=== PATIENT | female | born 1965 | race Native Hawaiian/Other Pacific Islander ===

== ENCOUNTER 2017-12-08 11:14 | Outpatient (CLI) | payer OTHER | END 2017-12-08 19:52 | disposition home or self-care (01) | LOC: LAB 11:14 | DX: E05.80 Other thyrotoxicosis without thyrotoxic crisis or storm (principal) | CPT/HCPCS: 36415; 82310 ==

== ENCOUNTER 2018-11-27 09:05 | Outpatient (CLI) | payer OTHER ==
[2018-11-27 10:00] LABS: PLATELET COUNT 255 K/uL (152-353)
[2018-11-27 10:19] LABS: POTASSIUM 3.8 mmol/L (3.6-5.2)
== END 2018-11-27 22:45 | disposition home or self-care (01) ==
LOC: LABW 09:05
PROVIDERS: Family Medicine
DX: R53.83 Other fatigue (principal); N28.9 Disorder of kidney and ureter, unspecified; E05.90 Thyrotoxicosis, unspecified without thyrotoxic crisis or storm
CPT/HCPCS: 36415; 80053; 80061; 82306; 82607; 82747; 84443; 85027

== ENCOUNTER 2018-12-05 14:47 | Outpatient (CLI) | payer OTHER | END 2018-12-05 22:20 | disposition home or self-care (01) | LOC: LAB 14:47 | DX: E05.90 Thyrotoxicosis, unspecified without thyrotoxic crisis or storm (principal) | CPT/HCPCS: 84436; 84439; 84479; 84481 ==

== ENCOUNTER 2018-12-22 08:37 | Outpatient (CLI) | payer OTHER | END 2018-12-22 23:41 | disposition home or self-care (01) | LOC: CT 08:37 | DX: R10.9 Unspecified abdominal pain (principal); Z12.39 Encounter for other screening for malignant neoplasm of breast ==

== ENCOUNTER 2019-06-22 11:22 | Outpatient (CLI) | payer OTHER ==
[2019-06-22 11:45] LABS: PLATELET COUNT 266 K/uL (152-353)
[2019-06-22 12:18] LABS: POTASSIUM 3.8 mmol/L (3.6-5.2)
== END 2019-06-22 21:19 | disposition home or self-care (01) ==
LOC: LAB 11:22
PROVIDERS: Nurse Practitioner Family
DX: Z00.00 Encounter for general adult medical examination without abnormal findings (principal); E05.90 Thyrotoxicosis, unspecified without thyrotoxic crisis or storm; E55.9 Vitamin D deficiency, unspecified; E78.5 Hyperlipidemia, unspecified; E03.9 Hypothyroidism, unspecified; R53.83 Other fatigue; E16.2 Hypoglycemia, unspecified; R53.81 Other malaise; Z79.899 Other long term (current) drug therapy
CPT/HCPCS: 80053; 80061; 82306; 83036; 84439; 84443; 84479; 85027

== ENCOUNTER 2019-12-18 16:19 | Outpatient (CLI) | payer OTHER | END 2019-12-18 23:35 | disposition home or self-care (01) | LOC: LAB 16:19 | DX: E03.9 Hypothyroidism, unspecified (principal) | CPT/HCPCS: 84439; 84443; 84479; 84481 ==

== ENCOUNTER 2020-01-02 08:52 | Outpatient (CLI) | payer OTHER | END 2020-01-02 21:25 | disposition home or self-care (01) | LOC: MAMMO 08:52 | DX: Z12.31 Encounter for screening mammogram for malignant neoplasm of breast (principal) ==

== ENCOUNTER 2020-01-10 10:31 | Outpatient (CLI) | payer OTHER | END 2020-01-10 21:57 | disposition home or self-care (01) | LOC: RAD 10:31 | DX: M25.561 Pain in right knee (principal) ==

== ENCOUNTER 2020-04-02 10:02 | Outpatient (CLI) | payer OTHER | END 2020-04-02 20:43 | disposition home or self-care (01) | LOC: LAB 10:02 | PROVIDERS: ATTEND Nurse Practitioner | DX: E03.8 Other specified hypothyroidism (principal); E78.2 Mixed hyperlipidemia | CPT/HCPCS: 36415; 84439 ==

== ENCOUNTER 2020-07-01 07:33 | Outpatient (CLI) | payer OTHER | END 2020-07-01 21:01 | disposition home or self-care (01) | LOC: LABW 07:33 | PROVIDERS: ATTEND Internal Medicine | DX: E03.9 Hypothyroidism, unspecified (principal) | CPT/HCPCS: 36415; 82330; 84439; 84443; 84479 ==

== ENCOUNTER 2020-07-21 12:13 | Outpatient (CLI) | payer OTHER ==
[2020-07-21 12:43] LABS: PLATELET COUNT 262 K/uL (152-353)
[2020-07-21 13:17] LABS: POTASSIUM 3.9 mmol/L (3.6-5.2)
== END 2020-07-21 19:23 | disposition home or self-care (01) ==
LOC: LABW 12:13
PROVIDERS: ATTEND Internal Medicine
DX: R29.898 Other symptoms and signs involving the musculoskeletal system (principal); E03.9 Hypothyroidism, unspecified
CPT/HCPCS: 36415; 80053; 82550; 83516; 83735; 84439; 84443; 85027; 85652; 86038; 86140; 86225; 86235

== ENCOUNTER 2020-07-25 12:35 | Outpatient (CLI) | payer OTHER | END 2020-07-25 21:40 | disposition home or self-care (01) | LOC: LABW 12:35 → MRI 13:00 → LABW 21:40 | PROVIDERS: ATTEND Specialist | DX: R20.2 Paresthesia of skin (principal); R29.898 Other symptoms and signs involving the musculoskeletal system | CPT/HCPCS: 36415; 82607; A9576 ==

== ENCOUNTER 2020-07-29 14:57 | Outpatient (CLI) | payer OTHER | END 2020-07-29 20:50 | disposition home or self-care (01) | LOC: MRI 14:57 | PROVIDERS: ATTEND Specialist | DX: R29.898 Other symptoms and signs involving the musculoskeletal system (principal) | CPT/HCPCS: A9576 ==

== ENCOUNTER 2020-10-01 08:00 | Outpatient (CLI) | payer OTHER ==
[2020-10-01 08:17] LABS: PLATELET COUNT 231 K/uL (152-353)
[2020-10-01 08:36] LABS: POTASSIUM 3.8 mmol/L (3.6-5.2)
== END 2020-10-01 21:25 | disposition home or self-care (01) ==
LOC: LABW 08:00
PROVIDERS: ATTEND Physician Assistant
DX: E03.8 Other specified hypothyroidism (principal); E78.2 Mixed hyperlipidemia; K21.9 Gastro-esophageal reflux disease without esophagitis; G62.9 Polyneuropathy, unspecified
CPT/HCPCS: 36415; 80053; 80061; 82306; 82607; 83036; 84439; 84443; 84481; 85027

== ENCOUNTER 2020-12-04 08:27 | Outpatient (CLI) | payer OTHER ==
[2020-12-04 08:48] LABS: PLATELET COUNT 272 K/uL (152-353)
[2020-12-04 09:11] LABS: POTASSIUM 3.8 mmol/L (3.6-5.2)
[2020-12-04 09:29] LABS: PARTIAL THROMBOPLASTIN TIME 30.2 SECONDS (24.5-33.6)
== END 2020-12-04 21:00 | disposition home or self-care (01) ==
LOC: LABW 08:27
PROVIDERS: ATTEND Neurological Surgery
DX: Z01.812 Encounter for preprocedural laboratory examination (principal); R00.0 Tachycardia, unspecified
CPT/HCPCS: 36415; 80053; 85002; 85027; 85610; 85730; 93005

== ENCOUNTER 2021-06-01 13:44 | Outpatient (CLI) | payer OTHER | END 2021-06-01 20:28 | disposition home or self-care (01) | LOC: RAD 13:44 | PROVIDERS: ATTEND Internal Medicine | DX: U07.1 COVID-19 (principal); R05.9 Cough, unspecified ==

== ENCOUNTER 2021-07-14 08:31 | Outpatient (CLI) | payer OTHER | END 2021-07-14 19:03 | disposition home or self-care (01) | LOC: MAMMO 08:31 | PROVIDERS: ATTEND Obstetrics & Gynecology | DX: Z12.31 Encounter for screening mammogram for malignant neoplasm of breast (principal) ==